=== PATIENT | female | born 1970 | race Two or more races ===

== ENCOUNTER 2019-10-05 15:47 | Emergency (ER) | payer OTHER ==
[~2019-10-05] VITALS: Ht 157.5 cm; Wt 56.7 kg
[~2019-10-05 15:47] MED LIST: LEXAPRO20 MG; PROVENTIL HFA6.7 GM IH; TUSSI PRES-B L120 M1 PO; WELLBUTRIN XL300 MG
[2019-10-05] MEDS ORDERED: ZOLOFT100 MG (16:00)
[2019-10-05] MEDS ORDERED: [UNRECOGNIZED DRUG - OTHER] (16:00)
== END 2019-10-05 18:53 | disposition home or self-care (01) ==
LOC: ER 15:47
DX: S93.491A Sprain of other ligament of right ankle, initial encounter (principal); S90.112A Contusion of left great toe without damage to nail, initial encounter; W01.198A Fall on same level from slipping, tripping and stumbling with subsequent striking against other object, initial encounter; Y93.89 Activity, other specified; Y92.018 Other place in single-family (private) house as the place of occurrence of the external cause; Y99.8 Other external cause status

== ENCOUNTER 2023-08-03 18:19 | Emergency (ER) | payer OTHER ==
[~2023-08-03] VITALS: Ht 154.9 cm; Wt 53.5 kg
[~2023-08-03 18:19] MED LIST changes: +ZOLOFT100 MG; +[UNRECOGNIZED DRUG - OTHER]
[2023-08-03 19:23] LABS: HEMATOCRIT 39.2 % (36.0-45.00); HEMOGLOBIN 13.1 g/dL (12.0-15.00); MEAN CELL VOLUME 94.4 fL (80.00-100.00); MEAN CORPUSCULAR HEMOGLOBIN 31.5 pg (27.00-32.0); MEAN CORPUSCULAR HGB CONC 33.4 g/dl (32.0-36.0); PLATELET COUNT 295 K/uL (150-450); RED BLOOD COUNT 4.16 M/uL (4.00-6.00); RED CELL DISTRIBUTION WIDTH 13.6 % (11.5-14.5)
[2023-08-03 19:49] LABS: CALCIUM 9.5 mg/dL (8.5-10.1); CREATININE SERUM 0.86 mg/dL (0.55-1.02); GFR 69.02; POTASSIUM 3.37 mEq/L (3.5-5.1)
== END 2023-08-03 21:14 | disposition home or self-care (01) ==
LOC: ER 18:19
PROVIDERS: Emergency Medicine
DX: R42 Dizziness and giddiness (principal)